=== PATIENT | female | born 1945 | race Caucasian/White ===

== ENCOUNTER 2018-03-17 11:55 | Emergency (ER) | payer MEDICAID ==
[~2018-03-17] VITALS: Ht 152.4 cm; Wt 109.3 kg
--- NOTE | 2018-03-17 12:23 | NUR ---
Patient triaged and placed in waiting room. VSS and patient appears in no acute distress at this time. Accompanied by family, awaiting available bed, and MD notified of need for MSE.
[2018-03-17 12:26] VITALS: BP_SYST 148
--- NOTE | 2018-03-17 14:51 | NUR ---
Pt placed in bed 6
--- NOTE | 2018-03-17 14:55 | NUR ---
Pt preents to ER c/o swelling and itching to her left lower eye x 3 days. Pt states that she has had an intermittent "poking" pain. Pt denies taking any medications for her symptoms. Pt denies any fevers, chills, nausea, vomiting, diarrhea, or vision changes.
--- NOTE | 2018-03-17 15:20 | NUR ---
Jona hancock in ED - 03/17/18 at 1532 by [email or web address] CARLO Gutiérrez at bedside examining patient.
--- NOTE | 2018-03-17 15:26 | NUR ---
ER at bedside examining patient.
[2018-03-17 16:01] VITALS: BP_SYST 130
--- NOTE | 2018-03-17 16:01 | NUR ---
Patient given written and verbal discharge instructions and verbalizes understanding. ER MD discussed with patient the results and treatment provided. Patient in stable condition. ID arm band removed. Rx of benadryl, erythromycin and bactroban given. Patient educated on pain management and to follow up with PMD. Pain Scale 0. Opportunity for questions provided and answered. Medication side effect fact sheet provided.
== END 2018-03-17 16:01 | disposition home or self-care (01) ==
LOC: SED 11:55 → EDBD 11:55 → SED 16:01
DX: H01.005 Unspecified blepharitis left lower eyelid (principal); I10 Essential (primary) hypertension
CPT/HCPCS: 99283